=== PATIENT | female | born 1970 | race Caucasian/White ===

== ENCOUNTER 2024-02-16 21:38 | Emergency (ER) | payer OTHER, SELFPAY ==
[2024-02-16 21:39] VITALS: BP 144/92; BMI 33.7
--- NOTE | 2024-02-16 22:21 | ED.GENMED ---
History of Present Illness
<SHARLA Lorenzo - Last Filed: 02/16/24 22:33>
General
Chief Complaint: Swelling
Source: patient
Exam Limitations: none
Time Seen by Provider: 02/16/24 22:09
Nursing documentation reviewed up to this point in time: agreed with
Travel History
Have you had any contact with someone who has COVID-19?: No
Do you have any symptoms of coronavirus? Fever > 100 degrees, chills, cough, shortness of breath, sore throat, loss of taste or smell, muscle aches, or headache?: No
History of Present Illness
History of Present Illness:
patient is a 54 y/o female with PMH of factor 5 Leiden presenting for leg swelling and pain. Patient presents after a right TKA on 02-04-24 that was successful. Patient presents today with pain in her posterior right LE. Patient admits the pain came
on today and describes it as an ache. Patient to associated tingling that is spontaneous on the right side. patient admits to going to PT post op that has been going well. Patient denies Cp, SOB, MANRIQUEZ, weakness, fever, chills. Patient admits that she
was on 81mg aspirin prior to the surgery for her factor 5 Leiden, however she was switched to Eliquis 2.5 BID for DVT prophylaxis post op. Patient also admits to taking Tylenol for pain post op.
Past History
<SHARLA Loernzo - Last Filed: 02/16/24 22:33>
Past History
ED Past Medical History: None
ED Past Surgical History: None
Social History
Tobacco: Non-smoker
Alcohol: Occasional
Drug: None
Personal:
Living: with family
Review of Systems
<SHARLA Lorenzo - Last Filed: 02/16/24 22:33>
Review of Systems
Constitutional: Reports no symptoms
EENT: Reports no symptoms
Respiratory: Reports no symptoms
Cardiac: Reports no symptoms
ABD/GI: Reports no symptoms
: Reports no symptoms
Musculoskeletal: Reports joint pain, joint swelling and other (right LE pain and swelling )
Skin: Reports other (incision site for right TKA )
Neurological: Reports other (tingling in right foot )
Endocrine: Reports no symptoms
Psychiatric: Reports no symptoms
Phy Exam
<SHARLA Lorenzo - Last Filed: 02/16/24 22:33>
General Physical Exam
General Presentation: well appearing and no apparent distress
General Skin: warm and dry
General Habitus: normal
General Mental: alert
General Hydration: appears well hydrated
ENT Exam
ENT Exam: EOMI, pharynx normal, neck supple and normocephalic
Eye Exam
Eye Exam: PERRL, cornea clear and conjunctiva normal
Cardiovascular Exam
Cardiovascular Exam: regular rate/rhythm, no edema, no murmur and normal peripheral pulses
Pulmonary Exam
Pulmonary Exam: lungs clear, no respiratory distress, no rales, no crackles, no rhonchi, no stridor, no wheezing and no cough
Gastrointestinal Exam
Gastrointestinal Exam: normal bowel sounds, non tender, soft, no organomegaly, no pulsatile mass and non distended
Neurological Exam
Neurological Exam: alert, oriented x3, no motor deficits and speech normal
Musculoskeletal Exam
Musculoskeletal Exam: neuro vasc intact and other (swelling in right calf with pain to palpation of posterior right calf )
Skin Exam
Skin Exam: normal color and warm/dry
Psychiatric Exam
Psychiatric Exam: normal mood/affect
<Maddison Bland DO - Last Filed: 02/17/24 06:53>
Heart Failure Risk
Heart Failure Risk Score: Not Applicable
Course
<SHARLA Lorenzo - Last Filed: 02/16/24 22:33>
Orders/Labs/Results
Orders:
Orders
02/16/24 22:24
US Periph Venous LOWER Ext RT Urgent
Comment:
Reason For Exam: leg swelling/pain post op tka
Vital Signs
Initial and Last Documented VS:
Initial Vital Signs
Temp Pulse Resp BP Pulse Ox
98.6 F 81 18 144/92 98
02/16/24 21:39 02/16/24 21:39 02/16/24 21:39 02/16/24 21:39 02/16/24 21:39
Last Documented Vital Signs
Temp Pulse Resp BP Pulse Ox
98.6 F 82 18 128/79 99
02/16/24 21:39 02/16/24 23:27 02/16/24 23:27 02/16/24 23:27 02/16/24 23:27
<Maddison Bland DO - Last Filed: 02/17/24 06:53>
Orders/Labs/Results
Orders:
Orders
02/16/24 22:24
US Periph Venous LOWER Ext RT Urgent
Comment:
Reason For Exam: leg swelling/pain post op tka
Vital Signs
Initial and Last Documented VS:
Initial Vital Signs
Temp Pulse Resp BP Pulse Ox
98.6 F 81 18 144/92 98
02/16/24 21:39 02/16/24 21:39 02/16/24 21:39 02/16/24 21:39 02/16/24 21:39
Last Documented Vital Signs
Temp Pulse Resp BP Pulse Ox
98.6 F 82 18 128/79 99
02/16/24 21:39 02/16/24 23:27 02/16/24 23:27 02/16/24 23:27 02/16/24 23:27
<SHARLA Lorenzo - Last Filed: 02/16/24 22:33>
MDM/Problems Addressed
Differential Diagnosis Includes:
DVT
post op swelling
cellulitis
hematoma
MDM/Problems Addressed:
leg pain and swelling
Chronic conditions affecting care:
factor 5 Leiden
<SHARLA Lorenzo - Last Filed: 02/16/24 22:33>
*Critical Care Note
Total Time (30-74mins, 75-104mins- exclusive of procedures): Not Applicable
<Maddison Bland DO - Last Filed: 02/17/24 06:53>
*Radiology
Radiology exam reviewed: other (Preliminary ultrasound result as per pyrotechnician-venous Dopplers negative for DVT.)
*Pulse Oximetry
Patient hypoxic: no
ED Attending Note
<SHARLA Lorenzo - Last Filed: 02/16/24 22:33>
-
Portions of this chart may have been created with voice recognition software.� Occasional wrong word or��sound alike� substitutions may have occurred due to the inherent limitations of voice recognition software.
<Maddison Bland DO - Last Filed: 02/17/24 06:53>
ED Attending Note
Patient seen and examined by attending physician: Yes
I performed the substantive portion of visit, reviewed & personally made and approve the management plan that is documented in note by myself or SHADE.: Yes
I performed a history and physical exam of patient and discussed management with resident, I reviewed resident's note and agree with documented findings and plan of care.: Yes
ED Attending Note:
This is a 54-year-old woman who underwent right total knee replacement February 04, [address] Mack.
She has history of factor V Leyden, discovered on routine testing after her daughter suffered a DVT. Patient herself has never had episode of thromboembolism. With discovery of factor V Leyden patient has been following with systems navigator and had
been maintained on a low-dose aspirin until right total knee replacement where she was placed on Eliquis 2.5 mg twice daily for 5 weeks postoperatively which she has been compliant with.
Since surgery she has been doing very well, following with outpatient physical therapy but tonight noted some right posterior calf discomfort and mild swelling thus presented to the ED, concern for DVT.
Postop right knee pain has been well-controlled with as needed Tylenol.
She has not had a cough nor shortness of breath, no chest pain or palpitations.
GENERAL: 54-year-old woman appears her stated age, bright and alert, pleasant, appears in no acute distress. is accompanying.
NECK: Supple, nontender
ENT: Oral mucosa is moist, no rhinorrhea.
CARDIAC: Regular rate and rhythm. no murmur.
LUNGS: no acute respiratory distress, lungs are clear to auscultation.
ABDOMEN: Soft, nondistended, without focal tenderness
NEUROLOGICAL: Alert and oriented x3, no focal neuro deficits.
SKIN: Warm and dry, normal color, skin intact. No rash.
MUSCULOSKELETAL: Dry and intact right anterior knee vertical surgical incision with intact ebonie. There is very minimal joint effusion. Very minimal right lower extremity edema with mild pain with deep palpation right posterior calf. There is
no palpable cord, no erythema. Peripheral pulses are full and equal. No dependent edema.
PSYCH: Normal and appropriate interaction.
Patient is 12 days postop right total knee replacement. Overall incision and knee look great. She is complaining of some mild right posterior calf pain which could certainly just be postop pain in nature but with history of factor V Leyden
deficiency must consider DVT thus will check venous Doppler right lower extremity.
Nothing in history nor exam suspicious for PE.
02/16/2024 23:30
Venous Dopplers negative for DVT.
Patient will be discharged to home, recommended to continue her Eliquis 2.5 mg twice daily as instructed.
Follow-up with Dr. Mack as scheduled in 2 days time.
Discharge Plan
Departure
Patient Disposition: Home (Routine Discharge)
Date of Disposition: 02/16/24
Time of Disposition: 23:24
Patient with high blood pressure during this ER visit?: No
Condition: Good
Discharge Problem:
postoperative right calf pain
Instructions: Postoperative Pain (DC)
Prescriptions:
No Action
oxycodone-acetaminophen [Percocet] 5-325 mg tablet
1 tab PO Q6HPRN PRN (Reason: pain) Qty: 10 0RF
Referrals:
Kemar Mack MD [Active] - Keep scheduled appt
Tono Salvador DO [Family Provider] -
Interventions
Interventions:
*Risk Screen - Suicide Last Done: 02/16/24 21:39
*General Assessment Last Done: 02/16/24 23:27
*Neglect/Abuse Screening Last Done: 02/16/24 21:39
ED- Fall Risk Assessment Last Done: 02/16/24 23:27
*ED COVID-19 Vaccine History Last Done: 02/16/24 21:39
*Nursing Disposition Last Done: 02/16/24 23:27
ED- Cardiac Assessment Last Done: 02/16/24 22:13
ED- Pulmonary Assessment Last Done: 02/16/24 22:13
ED-Skin Assessment Last Done: 02/16/24 22:13
Discharge Date and Time
Discharge Date/Time: 02/16/24 23:33
[2024-02-16 23:27] VITALS: BP 128/79
== END 2024-02-16 23:33 | disposition home or self-care (01) ==
LOC: EMR 21:38
PROVIDERS: EMERGENCY PHYSICIAN Emergency Medicine; FAMILY PHYSICIAN Family Medicine
DX: G89.18 Other acute postprocedural pain (principal); M79.661 Pain in right lower leg; M79.89 Other specified soft tissue disorders; D68.51 Activated protein C resistance; Z96.651 Presence of right artificial knee joint; Z91.040 Latex allergy status
CPT/HCPCS: 99284; 93971